=== PATIENT | female | born 1990 | race American Indian/Alaskan Native ===

== ENCOUNTER 2018-09-10 22:22 | Emergency (ER) | payer OTHER ==
[2018-09-10 22:22] VITALS: BMI 30.9
[2018-09-10 22:41] VITALS: BP 129/83; PULSE 76; RESP 20; TEMP 98.5; O2SAT 100
--- NOTE | 2018-09-10 22:53 | C.PDOC ---
History Of Present Illness 27-year-old female presents to the ED complaining of nasal congestion, frontal headache, sore throat and cough for 4 days. She denies any fevers, chills, shortness of breath, neck stiffness, or dizziness. Patient did not take any medication for symptom relief prior to arrival. Time Seen by Provider: 09/10/18 22:45 Chief Complaint (Nursing): Cough, Cold, Congestion History Per: Patient History/Exam Limitations: no limitations Onset/Duration Of Symptoms: Days Current Symptoms Are (Timing): Still Present Location Of Pain: Throat, Headache Associated Symptoms: Nasal Congestion Past Medical History Reviewed: Historical Data, Nursing Documentation, Vital Signs Vital Signs: Last Vital Signs Temp 98.5 F 09/10/18 22:37 Pulse 76 09/10/18 22:37 Resp 20 09/10/18 22:37 BP 129/83 09/10/18 22:37 Pulse Ox 100 09/10/18 22:37 - Medical History PMH: Anemia, Asthma Denies: Chronic Kidney Disease Surgical History: No Surg Hx Family History: States: No Known Family Hx - Social History Hx Alcohol Use: No Hx Substance Use: No - Immunization History Hx Tetanus Toxoid Vaccination: No Hx Influenza Vaccination: No Hx Pneumococcal Vaccination: No Review Of Systems Constitutional: Negative for: Fever, Chills ENT: Positive for: Nose Congestion, Throat Pain. Negative for: Ear Pain Cardiovascular: Negative for: Chest Pain Respiratory: Positive for: Cough. Negative for: Shortness of Breath, Wheezing Gastrointestinal: Negative for: Nausea, Vomiting, Diarrhea Musculoskeletal: Negative for: Neck Pain Neurological: Positive for: Headache. Negative for: Weakness, Dizziness Physical Exam - Physical Exam Appears: Well, Non-toxic, No Acute Distress Skin: Warm, Dry, No Rash Head: Atraumatic, Normacephalic Eye(s): bilateral: Normal Inspection Ear(s): Bilateral: Normal (TMs appear dull) Nose: Discharge (+ nasal congestion) Oral Mucosa: Moist Throat: Erythema (+ pharyngeal erythema), No Exudate, Other (+ post-nasal drip) Neck: Normal ROM, Supple Chest: Symmetrical Cardiovascular: Rhythm Regular, No Murmur Respiratory: Normal Breath Sounds, No Rales, No Rhonchi, No Wheezing Extremity: Bilateral: Atraumatic, Normal Color And Temperature, Normal ROM Neurological/Psych: Oriented x3, Normal Speech ED Course And Treatment O2 Sat by Pulse Oximetry: 100 (on room air) Pulse Ox Interpretation: Normal Medical Decision Making Medical Decision Making: Impression: 27-year-old with URI symptoms Initial Plan: --Sudafed 30 mg PO On re-examination, patient is resting comfortably in no acute distress. Patient feels comfortable going home and will be discharged with Sudafed, tessalon perles, and nasonex spray. Patient given follow up instructions. Instructed to return to ER if symptoms worsen or new symptoms arise. Disposition Counseled Patient/Family Regarding: Diagnosis, Need For Followup, Rx Given - Disposition Referrals: Freddy Perla MD [Medical Doctor] - Disposition: HOME/ ROUTINE Disposition Time: 22:49 Condition: GOOD Additional Instructions: Rest and drink plenty of fluids. May use cool mist humidifier or vaporizer in room. Try taking over the counter antihistamine (Claritin, Muriel, Zyrtec), Dec ongestant or Cough medicine (Mucinex) as needed every 6-8 hours. Follow up with your primary medical doctor or clinic in 1 week for further evaluation Prescriptions: Benzonatate [Tessalon Perles] 100 mg PO TID #30 sgl Mometasone Furoate [Nasonex] 17 gm NS DAILY #1 spray.pump Pseudoephedrine HCl [Sudafed 12-Hour] 120 mg PO Q12 #14 tablet.er Instructions: Upper Respiratory Infection (ED) Forms: [facility] ([place]ian) - POA Present On Arrival: None - Clinical Impression Clinical Impression: Upper respiratory infection - PA / [employer] / Resident Statement MD/DO has reviewed & agrees with the documentation as recorded. - Scribe Statement The provider has reviewed the documentation as recorded by the Scribe (Shena Savage) All medical record entries made by the Scribe were at my direction and personally dictated by me. I have reviewed the chart and agree that the record accurately reflects my personal performance of the history, physical exam, medical decision making, and the department course for this patient. I have also personally directed, reviewed, and agree with the discharge instructions and disposition.
== END 2018-09-10 23:18 | disposition home or self-care (01) ==
LOC: C.ER 22:22
DX: J06.9 Acute upper respiratory infection, unspecified (principal)